=== PATIENT | female | born 1945 | race Caucasian/White ===

== ENCOUNTER → 2017-12-19 10:45 | Outpatient (CLI) | payer MEDICARE | END | disposition home or self-care (01) | LOC: D.MRI 10:45 | DX: M54.16 Radiculopathy, lumbar region (principal) ==

== ENCOUNTER → 2019-06-05 11:27 | Outpatient (CLI) | payer MEDICARE | END | disposition home or self-care (01) | LOC: D.RAD 11:27 | PROVIDERS: ATTEND Family Medicine | DX: M79.601 Pain in right arm (principal) ==